=== PATIENT | male | born 1995 | race African-American/Black ===

== ENCOUNTER 2021-12-31 16:29 | Emergency (ER) | payer OTHER ==
[2021-12-31 16:39] VITALS: BP 146/83
--- NOTE | 2021-12-31 17:35 | ED Physician Documentation ---
PD HPI HEENT - Stated complaint Stated Complaint: TOOTH INJ - Chief complaint Chief Complaint: Heent - History obtained from History obtained from: Patient - History of Present Illness Timing - onset: Today Timing - duration: Hours (couple) Timing - details: Abrupt onset, Still present Location: Tooth (he states he struck his front tooth on metal shelf, which broke (the tooth that is). No injury to the lip/gums.) Associated symptoms: No: Fever, Congestion, Swollen nodes Similar symptoms before: Has not had sx before Recently seen: Not recently seen Review of Systems Nose: denies: Rhinorrhea / runny nose, Congestion Throat: reports: Dental pain / toothache (just the right upper front tooth.). denies: Sore throat Respiratory: denies: Cough PD PAST MEDICAL HISTORY - Past Medical History Cardiovascular: None Respiratory: None Endocrine/Autoimmune: None - Allergies Allergies/Adverse Reactions: Allergies Allergy/AdvReac Type Severity Reaction Status Date / Time lactose Allergy Unknown Verified 12/31/21 16:40 shellfish derived Allergy Anxiety Verified 12/31/21 16:40 PD ED PE NORMAL - Vitals Vital signs reviewed: Yes - General General: Alert and oriented X 3, No acute distress, Well developed/nourished - HEENT HEENT: No: Dentition benign (teeth are mostly in great shape, except for right upper front tooth that has fracture transverse through proximal portion of tooth, revealing pulp. No fleeing. Gums and lip are normal. ) Results - Vitals Vitals: Vital Signs - 24 hr 12/31/21 16:36 Temperature 36.1 C L Heart Rate 69 Respiratory 16 Rate Blood Pressure 146/83 H O2 Saturation 100 Oxygen O2 Source Room air PD MEDICAL DECISION MAKING - ED course Complexity details: considered differential (broken tooth will need dental eval and treatment. No urgency at this point and can be evaluated this coming week at dental clinic. ), d/w patient Departure - Departure Disposition: 01 Home, Self Care Clinical Impression: Tooth fracture Qualifiers: Encounter type: initial encounter Fracture type: open Qualified Code(s): S 02.5XXB - Fracture of tooth (traumatic), initial encounter for open fracture Condition: Stable Record reviewed to determine appropriate education?: Yes Instructions: ED Fx Tooth Follow-Up: JOHN Hong [Provider Group] Comments: The broken tooth will likely need to be just replaced with a crown. Its okay that it stays exposed at this point. It will be a little bit more sensitive. Avoid firm chewing with that. You can use some anti-inflammatory such as ibuprofen or naproxen 3 times daily to help. Topical oils can sometimes help such as oil of clove or even mineral oil/olive oil just to help seal over the porous portion of the tooth. Follow-up with dental clinic next week for initial evaluation. Again they most likely will need to replace it with a crown or. Discharge Date/Time: 12/31/21 18:08
[2021-12-31] MEDS ORDERED: IBUPROFEN 600 MG TABLET PO STA (17:57)
== END 2021-12-31 18:08 | disposition home or self-care (01) ==
LOC: ED 16:29
DX: S02.5XXA Fracture of tooth (traumatic), initial encounter for closed fracture (principal); W22.09XA Striking against other stationary object, initial encounter
CPT/HCPCS: 99282; A9270

== ENCOUNTER 2022-09-12 22:48 | Emergency (ER) | payer OTHER ==
--- NOTE | 2022-09-13 00:03 | ED Physician Documentation ---
PD HPI HEADACHE - Stated complaint Stated Complaint: MIGRAINE - Chief complaint Chief Complaint: Neuro - History obtained from History obtained from: Patient - Additional information Additional information: HPI from patient. Patient c/o rapid onset bifrontal headache at approximately 10 PM tonight while at work and undertaking heavy/strenuous activity. Denies h/o similar headaches. Denies weakness, numbness, visual changes. CHRISTENSEN is improving prior to this evaluation without intervention. Review of Systems Constitutional: denies: Fever Eyes: reports: Reviewed and negative GI: denies: Nausea, Vomiting Neurologic: reports: Headache. denies: Generalized weakness, Focal weakness, Numbness PD PAST MEDICAL HISTORY - Past Medical History Past Medical History: No Cardiovascular: None Respiratory: None Endocrine/Autoimmune: None - Past Surgical History Past Surgical History: Yes HEENT: Other - Present Medications Home Medications: Ambulatory Orders Medication Instructions Recorded Confirmed Ibuprofen [Motrin] 800 mg PO Q8HR PRN 09/12/22 09/12/22 - Allergies Allergies/Adverse Reactions: Allergies Allergy/AdvReac Type Severity Reaction Status Date / Time lactose Allergy Unknown Verified 09/12/22 23:19 shellfish derived Allergy Anxiety Verified 09/12/22 23:19 - Social History Does the pt smoke?: No Smoking Status: Never smoker Does the pt drink ETOH?: No Does the pt have substance abuse?: No - Immunizations Immunizations are current?: Yes - POLST Patient has POLST: No PD ED PE NORMAL - Vitals Vital signs reviewed: Yes - General General: Alert and oriented X 3, No acute distress, Well developed/nourished - HEENT HEENT: PERRL, EOMI - Neck Neck: Supple, no meningeal sign - Neuro Neuro: Alert and oriented X 3, 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, No motor deficit, No sensory deficit, Normal speech Eye Opening: Spontaneous Motor: Obeys Commands Verbal: Oriented GCS Score: 15 Results - Vitals Vitals: Oxygen O2 Source Room air - Rads (name of study) CTH Relevant Findings:: Prelim report reviewed, See rad report PD Medical Decision Making - ED course Complexity details: reviewed results, re-evaluated patient, considered differential, d/w patient Departure - Departure Disposition: 01 Home, Self Care Clinical Impression: Headache Condition: Good Instructions: ED Cephalgia Unspecified Follow-Up: JOHN Hong [Provider Group] Comments: pain there were no abnormalities on the CT scan of your head tonight. The cause of your headache is not apparent at this time, but the CT scan result is helpful in making a serious/dangerous cause very unlikely. Follow-up with your primary care provider, next available appointment, for reevaluation. Forms: PCP List Discharge Date/Time: 09/13/22 02:15
[2022-09-13 01:31] VITALS: BP 130/65
--- NOTE | 2022-09-13 01:31 | CT Report ---
PROCEDURE: HEAD WO INDICATIONS: headache TECHNIQUE: Noncontrast 4.5 mm thick angled axial sections acquired from the foramen magnum to the vertex. For r adiation dose reduction, the following was used: automated exposure control, adjustment of mA and/or kV according to patient size. COMPARISON: None. FINDINGS: Image quality: Excellent. CSF spaces: Basal cisterns are patent. No extra-axial fluid collections. Ventricles are normal in size and shape. Brain: No intracranial hemorrhage, mass, or mass effect. Moise-white matter interface appears preser marcin. Skull and face: Calvarium and visualized facial bones are intact, without suspicious lesions. Sinuses: Visualized sinuses and mastoids are clear. IMPRESSION: 1. No acute intracranial abnormality. Reviewed by: Ru Hermosillo MD on 09/13/2022 1:30 AM PDT Approved by: Ru Hermosillo MD on 09/13/2022 1:30 AM PDT Station ID: [id number]
== END 2022-09-13 02:15 | disposition home or self-care (01) ==
LOC: ED 22:48
DX: R51.9 Headache, unspecified (principal)
CPT/HCPCS: 99282; 99284